=== PATIENT | female | born 1970 | race American Indian/Alaskan Native ===

== ENCOUNTER 2021-10-31 06:29 | Day surgery (SDC) | payer OTHER ==
[2021-10-31] MEDS ORDERED: SODIUM CHLORIDE 0.9% 1000 ML 1,000 ML IV SCH (07:00)
--- NOTE | 2021-10-31 07:29 | Anesthesia Day of Surgery ---
Anesthesia Day of Surgery - Day of Surgery Patient Examined: Yes Patient H&P Reviewed: Yes Patient is NPO: Yes
--- NOTE | 2021-10-31 07:29 | Anesthesia Consultation ---
Anesthesia Consult and Med Hx Date of service: 10/31/21 - Airway Anesthetic Teeth Evaluation: Good ROM Head & Neck: Adequate Mental/Hyoid Distance: Adequate Mallampati Class: Class II Intubation Access Assessment: Good - Pulmonary Exam CTA: Yes - Cardiac Exam Cardiac Exam: RRR - Pre-Operative Health Status ASA Pre-Surgery Classification: ASA2 Proposed Anesthetic Plan: MAC - Pulmonary Hx Sleep Apnea: Yes - Cardiovascular System Hx Hypertension: Yes - Other Systems Hx Obesity: Yes
--- NOTE | 2021-10-31 08:11 | Discharge Summary ---
Providers - Providers Date of Admission: 10/31/2021 Date of discharge: 10/31/21 Attending physician: RAHAT DA SILVA MD Primary care physician: LEANNA ELIZABETH Hospitalization Reason for admission: pre-op egd Condition: Good Procedures: egd with bx Hospital course: Pt presented for a pre-op EGD as part of planning for up coming bariatric surgery. Procedure was uneventful and pt recovered well and was discharged to home. Disposition: 01 HOME / SELF CARE / HOMELESS Final Discharge Diagnosis (Prints w/discharge instructions): dyspepsia, morbid obesity Core Measure Documentation - Palliative Care Palliative Care/ Comfort Measures: Not Applicable - Core Measures Any of the following diagnoses?: none Exam - Physical Exam Narrative exam: unchanged from pre-op Plan Activity: no restrictions Diet: low carbohydrate Follow up with: LEANNA ELIZABETH MD [Primary Care Provider] - 7 Days
--- NOTE | 2021-10-31 08:12 | Operative Report ---
Operative Report Operative Report: DATE: 10/31/2021 SURGERY: Upper endoscopy. SURGEON: Priti Martins M.D. PROCEDURE: EGD with biopsy PRE OP DX: morbid obesity, GERD POST OP DX: morbid obesity, GERD TYPE OF ANESTHESIA: MAC. ESTIMATED BLOOD LOSS: None. COMPLICATIONS: None. SPECIMENS REMOVED: antral biopsy FINDINGS: 1. Small hiatal hernia. 2. gastritis INDICATIONS:INDICATION FOR PROCEDURE: Patient is a 51-year-old female with a long history of morbid obesity. She is planned to have a weight loss procedure and is here for preoperative planning EGD. PROCEDURE DETAILS: After consent was reviewed, patient was taken back to the operating room where patient was placed in the left lateral decubitus position and a bite block was placed in the mouth. After a time-out was called, MAC anesthesia was initiated. I then passed the endoscope into her oropharynx, into her esophagus, visualized the entire esophagus, which was all within normal limits. Z-line was noted to about 38cm from incisors. I then visualized the stomach and the first portion of the duodenum and there were no abnormalities I could clearly visualize except for antral gastritis. A cold forceps biopsy of the antrum was taken and will be sent to pathology to evaluate for H.pylori. I then retroflexed the scope in the stomach and visualized the hiatus and I could see a small hiatal hernia. I then desufflated the stomach and removed the endoscope. Patient tolerated procedure well and was transferred to recovery room in good and stable condition.
[2021-10-31] MEDS ORDERED: propofoL 200 MG/20 ML VIAL IV ONE (09:02)
[2021-10-31] MEDS ORDERED: LIDOCAINE MPF (2%) 20 MG/1 ML VIAL 5 ML ONE (09:02)
[2021-10-31 09:49] VITALS: BP 121/79
--- NOTE | 2021-10-31 15:56 | Post Anesthesia Evaluation ---
- Post Anesthesia Evaluation Patient Participated: Yes Airway Patent: Yes Stable Respiratory Function: Yes Nausea/Vomiting: No Temp > 96.8F: Yes Pain Manageable: Yes Adequeate Hydration: Yes Anesthesia Complications: No Block Receding Appropriately: Not Applicable Patient on Ventilator: No
== END 2021-10-31 09:55 | disposition home or self-care (01) ==
LOC: GIO 06:29
PROVIDERS: ATTEND Surgery
DX: E66.01 Morbid (severe) obesity due to excess calories (principal); K21.9 Gastro-esophageal reflux disease without esophagitis; K30 Functional dyspepsia; K44.9 Diaphragmatic hernia without obstruction or gangrene; K29.50 Unspecified chronic gastritis without bleeding; K31.89 Other diseases of stomach and duodenum; B96.81 Helicobacter pylori [H. pylori] as the cause of diseases classified elsewhere; G47.30 Sleep apnea, unspecified; I10 Essential (primary) hypertension; Z68.41 Body mass index [BMI] 40.0-44.9, adult
CPT/HCPCS: 43239; 88305; 88342; J2704; J3490; J7120

== ENCOUNTER 2021-11-28 07:28 | Outpatient (CLI) | payer OTHER ==
--- NOTE | 2021-11-28 10:39 | Fluoroscopy Report ---
BARIUM SWALLOW Indication: MORBID OBESITY. Technique: Single and double contrast barium technique utilized to evaluate the esophagus. FINDINGS: To begin the exam, swallowing was evaluated in the lateral position under direct fluorosco py. Swallowing was normal. No mucosal irregularity, mass, mass effect, or critical stenosis. There were no abnormal tertiary c ontractions as seen with dysmotility. No gastroesophageal reflux. IMPRESSION: Unremarkable exam. Fluoroscopic time: 0.6 minutes Number of fluoroscopic images: 26 Signer Name: Juliocesar Frey Jr, MD Signed: 11/28/2021 10:35 AM Workstation Name: [id number]
== END 2021-11-28 07:29 | disposition home or self-care (01) ==
LOC: PF 07:28
PROVIDERS: ATTEND Surgery
DX: E66.01 Morbid (severe) obesity due to excess calories (principal); E66.2 Morbid (severe) obesity with alveolar hypoventilation
CPT/HCPCS: 74220